=== PATIENT | male | born 1935 | race Caucasian/White ===

== ENCOUNTER 2023-04-06 12:24 | Inpatient (IN) | payer OTHER, MEDICARE ==
[2023-04-06 14:58] VITALS: BMI 25.3
[2023-04-06] MEDS ORDERED: Ondansetron ODT 4 MG TAB PO PRN (15:27)
[2023-04-06] MEDS ORDERED: hydrALAZINE 20 MG/ML VIAL SLOW IVP PRN (15:27)
[2023-04-06] MEDS ORDERED: Dextrose 50% Abboject 50 ML SYRINGE SLOW IVP PRN (15:27)
[2023-04-06] MEDS ORDERED: Ondansetron PF 4 MG/2 ML Vial IVP PRN (15:27)
[2023-04-06] MEDS ORDERED: Dextrose 5% in Water 1,000 ML IV PRN (15:27)
[2023-04-06] MEDS ORDERED: Ipratropium/Albuterol 3 ML NEB NEB PRN (15:27)
[2023-04-06] MEDS ORDERED: Ibuprofen 800 MG TAB PO PRN (15:35)
[2023-04-06] MEDS ORDERED: traMADol HCl 50 MG TAB PO PRN (15:35)
[2023-04-06] MEDS ORDERED: Cyclobenzaprine 10 MG TAB PO PRN (15:35)
[2023-04-06] MEDS ORDERED: Acetaminophen 500 MG TAB PO SCH (15:45)
[2023-04-06] MEDS ORDERED: Gabapentin 100 MG CAP PO SCH (15:45)
[2023-04-06] MEDS ORDERED: traMADol HCl 50 MG TAB PO SCH (15:45)
[2023-04-06 18:23] LABS: #Monocytes 1.3 thou/uL (0.11-0.59); #Neutrophils 7.4 thou/uL (1.40-6.50); %Basophils 0.3 % (0.0-1.0); %Eosinophils 0.1 % (0.0-10.0); %Neutrophils 57.2 % (42.0-75.0); Hemoglobin 12.5 g/dL (14.0-18.0); Mean Corpuscular HGB CONC 31.3 g/dL (32.0-36.0); Mean Corpuscular Hemoglobin 33.3 pg (27.0-31.0); Mean Corpuscular Volume 106.4 fl (78.0-98.0); Mean Platelet Volume 10.6 fL (7.4-10.4); Platelet Count 165 10x3/uL (130-400); Red Blood Cell (RBC) Count 3.75 mill/uL (4.70-6.10)
[2023-04-06] MEDS ORDERED: DOPamine 400 MG/D5W 250 ML 250 ML IVPB SCH (18:45)
[2023-04-06 18:49] LABS: Troponin I 0.021 ng/mL (< 0.028)
[2023-04-06 19:02] LABS: Anion Gap 16 mmol/L (10-20); BUN (Urea Nitrogen) 16 mg/dL (8.4-25.7); Calc. Creatinine Clearance 69 mL/min (70-130); Calcium 9.2 mg/dL (7.8-10.44); Carbon Dioxide 22 mmol/L (23-31); Chloride 105 mmol/L (98-107); Estimated GFR 83; Glucose 147 mg/dL (83-110); Magnesium 1.9 mg/dL (1.6-2.6); Phosphorus 3.4 mg/dL (2.3-4.7); Potassium 4.4 mmol/L (3.5-5.1); Sodium 139 mmol/L (136-145)
[2023-04-06] MEDS ORDERED: Magnesium 2 GM/50 ML(in water) 2 GM in Premix Bag 1 BAG IVPB SCH (19:30)
[2023-04-06] MEDS: Senokot S 8.6-50 MG TAB PO SCH (19:43)
[2023-04-06] MEDS: Famotidine 20 MG TAB PO SCH (19:43)
[2023-04-06] MEDS: Gabapentin 100 MG CAP PO SCH (21:42)
[2023-04-07] MEDS: Acetaminophen 500 MG TAB PO SCH ×5 (00:30→23:39)
[2023-04-07] MEDS: traMADol HCl 50 MG TAB PO SCH ×5 (00:31→23:40)
[2023-04-07 03:02] LABS: #Monocytes 0.9 thou/uL (0.11-0.59); #Neutrophils 6.1 thou/uL (1.40-6.50); %Basophils 0.1 % (0.0-1.0); %Eosinophils 0.1 % (0.0-10.0); %Lymphocytes 16.7 % (21.0-51.0); %Monocytes 10.8 % (0.0-10.0); %Neutrophils 72.1 % (42.0-75.0); Hemoglobin 11.9 g/dL (14.0-18.0); Mean Corpuscular HGB CONC 33.1 g/dL (32.0-36.0); Mean Corpuscular Hemoglobin 33.7 pg (27.0-31.0); Mean Platelet Volume 10.6 fL (7.4-10.4); Platelet Count 147 10x3/uL (130-400); RBC Distribution Width 13.1 % (11.5-14.5); Red Blood Cell (RBC) Count 3.53 mill/uL (4.70-6.10); White Blood Cell (WBC) Count 8.5 10x3/uL (4.8-10.8)
[2023-04-07 03:08] LABS: Mean Corpuscular Volume 101.7 fl (78.0-98.0)
[2023-04-07 03:36] LABS: Anion Gap 12 mmol/L (10-20); BUN (Urea Nitrogen) 17 mg/dL (8.4-25.7); Calc. Creatinine Clearance 82 mL/min (70-130); Calcium 8.6 mg/dL (7.8-10.44); Carbon Dioxide 23 mmol/L (23-31); Chloride 105 mmol/L (98-107); Estimated GFR 88; Glucose 120 mg/dL (83-110); Potassium 4.2 mmol/L (3.5-5.1); Sodium 136 mmol/L (136-145)
[2023-04-07 03:39] LABS: Phosphorus 3.1 mg/dL (2.3-4.7)
[2023-04-07] MEDS: Gabapentin 100 MG CAP PO SCH ×3 (05:33→21:02)
[2023-04-07] MEDS ORDERED: Atenolol 50 MG TAB PO SCH ×2 (09:00)
[2023-04-07] MEDS: Senokot S 8.6-50 MG TAB PO SCH ×2 (10:56→21:02)
[2023-04-07] MEDS: Polyethylene Glycol 3350 17 GM Packet PO SCH (10:56)
[2023-04-07] MEDS: Famotidine 20 MG TAB PO SCH ×2 (10:56→21:02)
[2023-04-08] MEDS: Acetaminophen 500 MG TAB PO SCH ×3 (06:29→17:58)
[2023-04-08] MEDS: traMADol HCl 50 MG TAB PO SCH ×3 (06:29→17:58)
[2023-04-08] MEDS: Gabapentin 100 MG CAP PO SCH ×3 (06:29→20:38)
[2023-04-08] MEDS: Famotidine 20 MG TAB PO SCH ×2 (08:58→20:32)
[2023-04-08] MEDS: Senokot S 8.6-50 MG TAB PO SCH ×2 (08:58→20:32)
[2023-04-08] MEDS: Polyethylene Glycol 3350 17 GM Packet PO SCH (08:58)
[2023-04-09] MEDS: Acetaminophen 500 MG TAB PO SCH ×4 (00:37→18:19)
[2023-04-09] MEDS: traMADol HCl 50 MG TAB PO SCH ×4 (00:39→18:18)
[2023-04-09] MEDS: Gabapentin 100 MG CAP PO SCH ×3 (05:07→20:27)
[2023-04-09] MEDS: Famotidine 20 MG TAB PO SCH ×2 (09:35→20:28)
[2023-04-09] MEDS: Senokot S 8.6-50 MG TAB PO SCH ×2 (09:35→20:28)
[2023-04-09] MEDS: Polyethylene Glycol 3350 17 GM Packet PO SCH (09:35)
[2023-04-09] MEDS ORDERED: Calcium Carbonate 500 MG ChewTAB PO PRN (16:25)
[2023-04-09] MEDS: Atorvastatin Calcium 40 MG TAB PO SCH (20:28)
[2023-04-10] MEDS: Acetaminophen 500 MG TAB PO SCH ×2 (00:04→05:49)
[2023-04-10] MEDS: traMADol HCl 50 MG TAB PO SCH ×2 (00:06→05:47)
[2023-04-10 01:13] LABS: #Monocytes 0.9 thou/uL (0.11-0.59); #Neutrophils 5.8 thou/uL (1.40-6.50); %Basophils 0.1 % (0.0-1.0); %Eosinophils 0.2 % (0.0-10.0); %Lymphocytes 16.9 % (21.0-51.0); %Monocytes 10.9 % (0.0-10.0); %Neutrophils 71.7 % (42.0-75.0); Hemoglobin 10.1 g/dL (14.0-18.0); Mean Corpuscular HGB CONC 33.4 g/dL (32.0-36.0); Mean Corpuscular Hemoglobin 33.7 pg (27.0-31.0); Mean Corpuscular Volume 100.7 fl (78.0-98.0); Mean Platelet Volume 10.4 fL (7.4-10.4); Platelet Count 146 10x3/uL (130-400); RBC Distribution Width 13.1 % (11.5-14.5)
[2023-04-10] MEDS: Gabapentin 100 MG CAP PO SCH ×2 (05:47→14:36)
[2023-04-10 07:40] LABS: #Monocytes 1.1 thou/uL (0.11-0.59); #Neutrophils 5.1 thou/uL (1.40-6.50); %Basophils 0.2 % (0.0-1.0); %Eosinophils 0.5 % (0.0-10.0); %Lymphocytes 23.4 % (21.0-51.0); %Neutrophils 62.7 % (42.0-75.0); Mean Corpuscular HGB CONC 32.8 g/dL (32.0-36.0); Mean Corpuscular Hemoglobin 33.8 pg (27.0-31.0); Mean Platelet Volume 9.8 fL (7.4-10.4); Platelet Count 138 10x3/uL (130-400); RBC Distribution Width 13.1 % (11.5-14.5); Red Blood Cell (RBC) Count 2.96 mill/uL (4.70-6.10); White Blood Cell (WBC) Count 8.1 10x3/uL (4.8-10.8)
[2023-04-10] MEDS ORDERED: Acetaminophen/Codeine 30-300mg Tablet PO SCH (08:00)
[2023-04-10] MEDS: Senokot S 8.6-50 MG TAB PO SCH ×3 (10:00→19:33)
[2023-04-10] MEDS: Polyethylene Glycol 3350 17 GM Packet PO SCH (10:09)
[2023-04-10] MEDS: Famotidine 20 MG TAB PO SCH ×2 (10:10→19:33)
[2023-04-10] MEDS: Acetaminophen/Codeine 30-300mg Tablet PO SCH ×2 (12:42→19:32)
[2023-04-10 13:14] VITALS: BP 131/91
[2023-04-10] MEDS: Atorvastatin Calcium 40 MG TAB PO SCH (19:33)
[2023-04-10 20:52] VITALS: TEMP 97.4
== END 2023-04-10 20:17 | DRG 86 ==
LOC: IMCU/EMU 14:24
PROVIDERS: ADMIT Surgery; ATTEND Surgery
PROC: 3E033XZ Introduction of Vasopressor into Peripheral Vein, Percutaneous Approach (ICD-10-PCS; principal; 2023-04-06)
DX: S06.6X0A Traumatic subarachnoid hemorrhage without loss of consciousness, initial encounter (principal); S22.038A Other fracture of third thoracic vertebra, initial encounter for closed fracture; S22.41XA Multiple fractures of ribs, right side, initial encounter for closed fracture; S22.048A Other fracture of fourth thoracic vertebra, initial encounter for closed fracture; S22.058A Other fracture of T5-T6 vertebra, initial encounter for closed fracture; S22.068A Other fracture of T7-T8 thoracic vertebra, initial encounter for closed fracture; S22.078A Other fracture of T9-T10 vertebra, initial encounter for closed fracture; I10 Essential (primary) hypertension; E78.00 Pure hypercholesterolemia, unspecified; I08.1 Rheumatic disorders of both mitral and tricuspid valves; I27.20 Pulmonary hypertension, unspecified; Z96.653 Presence of artificial knee joint, bilateral; S80.11XA Contusion of right lower leg, initial encounter; R40.2362 Coma scale, best motor response, obeys commands, at arrival to emergency department; R40.2142 Coma scale, eyes open, spontaneous, at arrival to emergency department; R40.2252 Coma scale, best verbal response, oriented, at arrival to emergency department; R00.1 Bradycardia, unspecified; V86.55XA Driver of 3- or 4- wheeled all-terrain vehicle (ATV) injured in nontraffic accident, initial encounter; Z98.890 Other specified postprocedural states; Z79.82 Long term (current) use of aspirin; Z79.899 Other long term (current) drug therapy
CPT/HCPCS: 36415; 36416; 70450; 71045; 80048; 82533; 83735; 84100; 84146; 84443; 84484; 85025; 93005; 93010; 93306; J1265; J3475

== ENCOUNTER 2023-05-14 13:35 | Outpatient (CLI) | payer MEDICARE | END 2023-05-14 13:36 | disposition home or self-care (01) | LOC: CT 13:35 | PROVIDERS: ATTEND Physician Assistant | DX: S06.6X0S Traumatic subarachnoid hemorrhage without loss of consciousness, sequela (principal); S22.009D Unspecified fracture of unspecified thoracic vertebra, subsequent encounter for fracture with routine healing | CPT/HCPCS: 70450; 72072 ==